=== PATIENT | male | born 1940 | race Caucasian/White ===

== ENCOUNTER 2016-12-16 07:52 | Outpatient (CLI) | payer MEDICARE, OTHER ==
[~2016-12-16] VITALS: Ht 185.5 cm; Wt 127.3 kg
[2016-12-16] VITALS (36 sets, daily range): BP systolic 109–143; BP diastolic 64–98; PULSE 54–87; TEMP 97.7; O2SAT 93–99
[~2016-12-16 07:52] MED LIST: ASPRIN; CELEXA 20MG20 MG/TAB PO; COLACE 100100 MG/CAP PO; COREG12.5 MG PO; COUMADIN 1MG1 MG/TAB PO; COZAAR 50MG50 MG/TAB PO; GLUCOPHAGE500 MG/TAB PO; HYZAAR 12.5 MG-1 TA1 PO; LASIX 20MG TABL20 MG PO; LASIX 40MG TABL40 MG PO; LASIX40 MG PO; LIPITOR20 MG PO; MACROBID 1100 MG/CAP PO; METFORMIN500 MG PO; MICRO-K 1010 MEQ PO; SOTALOL80 MG PO; VIT B 12; VITA #121000 MCG/M IM; VITAMIN B-12100 MCG PO; VITAMIN D31000 IU PO; Victoza SQ; WARFARIN4 MG PO; XANAX .25M0.25 MG/TA PO; ZOCOR 40MG40 MG PO; [UNRECOGNIZED DRUG - REMARK]
[2016-12-16 08:22] LABS: HEMATOCRIT 49.2 % (42.0-52.0); HEMOGLOBIN 16.3 g/dl (13.5-18.0); MEAN CELL VOLUME 93 fl (80.0-100.0); MEAN CORPUSCULAR HEMOGLOBIN 31 pg (27.0-31.0); MEAN CORPUSCULAR HGB CONC 33 g/dl (33.0-37.0); MEAN PLATELET VOLUME 11.5 fl (7.4-10.4); PLATELET COUNT 131 K/mm3 (130-400); REDCELL DISTRIBUTION WIDTH-CV 13.3 % (11.5-14.5); WHITE BLOOD COUNT 7.2 K/mm3 (4.8-10.8)
[2016-12-16 08:27] LABS: INR 2.8 (0.8-3.0); PROTHROMBIN TIME 32.4 SECONDS (9.7-12.8)
[2016-12-16 08:31] LABS: CALCIUM 9.1 mg/dL (8.4-10.2); CREATININE, serum 0.89 mg/dL (0.66-1.25); POTASSIUM 4.4 mmol/L (3.4-5.0)
[2016-12-16] MEDS ORDERED: ASPIRIN E.C. 8181 MG PO (08:40)
[2016-12-16] MEDS ORDERED: CYANOCOBAL1000 MCG/1 PO (08:42)
[2016-12-16] MEDS ORDERED: JANUVIA50 MG PO (08:44)
[2016-12-16] MEDS ORDERED: ZOCOR 40MG40 MG PO (08:46)
[2016-12-16] MEDS ORDERED: COUMADIN 1MG1 MG/TAB PO ×2 (08:47→08:48)
[2016-12-16] MEDS ORDERED: VITAMIN D1000 IU PO (08:49)
[2016-12-16] MEDS ORDERED: PACERONE400 MG PO (12:39)
== END 2016-12-16 13:30 | disposition home or self-care (01) ==
LOC: COL.RAD 07:52
PROVIDERS: Internal Medicine Interventional Cardiology
DX: I08.0 Rheumatic disorders of both mitral and aortic valves (principal); I50.22 Chronic systolic (congestive) heart failure; R94.31 Abnormal electrocardiogram [ECG] [EKG]
CPT/HCPCS: J0282; J2250; J3010; J7060

== ENCOUNTER 2017-02-03 07:25 | Day surgery (SDC) | payer MEDICARE, OTHER ==
[~2017-02-03] VITALS: Ht 185.4 cm; Wt 130.0 kg
[~2017-02-03 07:25] MED LIST changes: +ASPIRIN E.C. 8181 MG PO; +CYANOCOBAL1000 MCG/1 PO; +JANUVIA50 MG PO; +PACERONE400 MG PO; +VITAMIN D1000 IU PO
[2017-02-03 08:09] VITALS: BP 98/56; PULSE 63; TEMP 97.7
[2017-02-03] MEDS ORDERED: B COMPLEX #11 TA1 PO (08:41)
[2017-02-03] MEDS ORDERED: CPAP (08:42)
[2017-02-03] MEDS ORDERED: COREG 25MG25 MG/TAB PO (08:46)
[2017-02-03] MEDS ORDERED: COUMADIN4 MG PO (08:48)
[2017-02-03] MEDS ORDERED: ALDACTONE 25MG25 M1 PO (08:50)
[2017-02-03] MEDS ORDERED: TYLENOL 325MG325 MG PO (08:52)
[2017-02-03 08:54] LABS: HEMATOCRIT 45.3 % (42.0-52.0); MEAN CELL VOLUME 95 fl (80.0-100.0); MEAN CORPUSCULAR HEMOGLOBIN 31 pg (27.0-31.0); MEAN CORPUSCULAR HGB CONC 33 g/dl (33.0-37.0); MEAN PLATELET VOLUME 11.4 fl (7.4-10.4); PLATELET COUNT 120 K/mm3 (130-400); RED BLOOD COUNT 4.77 M/mm3 (4.20-5.60); REDCELL DISTRIBUTION WIDTH-CV 14.8 % (11.5-14.5); WHITE BLOOD COUNT 6.3 K/mm3 (4.8-10.8)
[2017-02-03 08:57] LABS: CALCIUM 8.8 mg/dL (8.4-10.2); CREATININE, serum 0.98 mg/dL (0.66-1.25); POTASSIUM 4.4 mmol/L (3.4-5.0)
[2017-02-03 08:59] LABS: PROTHROMBIN TIME 37.4 SECONDS (9.7-12.8)
[2017-02-03 09:08] LABS: INR 3.3 (0.8-3.0)
[2017-02-03 10:00] VITALS: BP 154/73; PULSE 58
[2017-02-03 10:15] VITALS: BP 151/82; PULSE 61
[2017-02-03] MEDS ORDERED: PACERONE200 MG PO (10:19)
[2017-02-03 10:30] VITALS: BP 149/83; PULSE 61
[2017-02-03 11:22] LABS: THYROID STIMULATING HORMONE 3.03 uIU/mL (0.465-4.680)
== END 2017-02-03 10:59 | disposition home or self-care (01) ==
LOC: COL.RAD 07:25
PROVIDERS: Internal Medicine Interventional Cardiology
DX: I48.91 Unspecified atrial fibrillation (principal); I10 Essential (primary) hypertension; I50.22 Chronic systolic (congestive) heart failure; R42 Dizziness and giddiness; Z95.0 Presence of cardiac pacemaker; F17.220 Nicotine dependence, chewing tobacco, uncomplicated
CPT/HCPCS: J2704; J7030

== ENCOUNTER 2017-04-21 10:31 | Day surgery (SDC) | payer MEDICARE, OTHER ==
[~2017-04-21] VITALS: Ht 183 cm; Wt 127.0 kg
[~2017-04-21 10:31] MED LIST changes: +ALDACTONE 25MG25 M1 PO; +B COMPLEX #11 TA1 PO; +COREG 25MG25 MG/TAB PO; +COUMADIN4 MG PO; +CPAP; +PACERONE200 MG PO; +TYLENOL 325MG325 MG PO
[2017-04-21 11:29] LABS: HEMATOCRIT 45.4 % (42.0-52.0); HEMOGLOBIN 15.1 g/dl (13.5-18.0); MEAN CELL VOLUME 97 fl (80.0-100.0); MEAN CORPUSCULAR HEMOGLOBIN 32 pg (27.0-31.0); MEAN CORPUSCULAR HGB CONC 33 g/dl (33.0-37.0); MEAN PLATELET VOLUME 11.1 fl (7.4-10.4); PLATELET COUNT 141 K/mm3 (130-400); RED BLOOD COUNT 4.68 M/mm3 (4.20-5.60); REDCELL DISTRIBUTION WIDTH-CV 13.5 % (11.5-14.5); WHITE BLOOD COUNT 7.9 K/mm3 (4.8-10.8)
[2017-04-21] MEDS ORDERED: COUMADIN4 MG PO (11:29)
[2017-04-21] MEDS ORDERED: COUMADIN 3MG3 MG/TAB PO (11:31)
[2017-04-21 11:33] LABS: PROTHROMBIN TIME 22.5 SECONDS (9.7-12.8)
[2017-04-21] MEDS ORDERED: VITAMIN B-1000 MCG/T PO (11:36)
[2017-04-21] MEDS ORDERED: ZOCOR 40MG40 MG PO (11:40)
[2017-04-21 11:42] LABS: CALCIUM 9.1 mg/dL (8.4-10.2); CREATININE, serum 0.98 mg/dL (0.66-1.25); POTASSIUM 4.7 mmol/L (3.4-5.0)
[2017-04-21] MEDS ORDERED: ALDACTONE 25MG25 M1 PO (11:46)
[2017-04-21] MEDS ORDERED: PACERONE100 MG PO (11:47)
[2017-04-21 11:51] VITALS: BP 130/67; PULSE 51; TEMP 98.3
[2017-04-21 15:24] LABS: PROTHROMBIN TIME 22.1 SECONDS (9.7-12.8)
[2017-04-21] MEDS ORDERED: CORDARONE200 MG/TAB PO (16:59)
== END 2017-04-21 17:10 | disposition home or self-care (01) ==
LOC: COL.CAR 10:31
PROVIDERS: Internal Medicine Interventional Cardiology
DX: I48.91 Unspecified atrial fibrillation (principal); I08.0 Rheumatic disorders of both mitral and aortic valves; I11.0 Hypertensive heart disease with heart failure; I50.20 Unspecified systolic (congestive) heart failure; E11.9 Type 2 diabetes mellitus without complications; R42 Dizziness and giddiness; Z79.84 Long term (current) use of oral hypoglycemic drugs; Z80.9 Family history of malignant neoplasm, unspecified; Z83.3 Family history of diabetes mellitus; Z95.810 Presence of automatic (implantable) cardiac defibrillator; Z79.01 Long term (current) use of anticoagulants; Z95.1 Presence of aortocoronary bypass graft
CPT/HCPCS: Q9967

== ENCOUNTER 2017-08-05 20:58 | Emergency (ER) | payer MEDICARE, OTHER ==
[~2017-08-05] VITALS: Ht 185.4 cm; Wt 127.3 kg
[~2017-08-05 20:58] MED LIST changes: +CORDARONE200 MG/TAB PO; +COUMADIN 3MG3 MG/TAB PO; +PACERONE100 MG PO; +VITAMIN B-1000 MCG/T PO
[2017-08-05 21:01] VITALS: TEMP 97.9
[2017-08-05] MEDS ORDERED: COREG 6.256.25 MG/TA PO (21:19)
[2017-08-05 21:49] LABS: BASO % 0.5 % (0.0-2.0); EOS # 0.4 (0.0-0.7); EOS % 5.2 % (0-4.0); HEMATOCRIT 45.3 % (42.0-52.0); HEMOGLOBIN 14.7 g/dl (13.5-18.0); LYMPH # 2.1 (1.2-3.4); LYMPH % 24.8 % (20.0-51.0); MEAN CELL VOLUME 97 fl (80.0-100.0); MEAN CORPUSCULAR HEMOGLOBIN 32 pg (27.0-31.0); MEAN CORPUSCULAR HGB CONC 33 g/dl (33.0-37.0); MEAN PLATELET VOLUME 10.9 fl (7.4-10.4); MONO # 0.8 (0.1-0.6); MONO % 9.1 % (1.7-9.3); PLATELET COUNT 197 K/mm3 (130-400); RED BLOOD COUNT 4.65 M/mm3 (4.20-5.60); REDCELL DISTRIBUTION WIDTH-CV 13.1 % (11.5-14.5); WHITE BLOOD COUNT 8.3 K/mm3 (4.8-10.8)
[2017-08-05 22:01] LABS: ADJUSTED CALCIUM 9.2 mg/dL (8.4-10.2); ALBUMIN 3.7 gm/dL (3.5-5.0); BILIRUBIN,TOTAL 0.7 mg/dL (0.0-1.0); CREATININE, serum 0.86 mg/dL (0.66-1.25); POTASSIUM 4.2 mmol/L (3.4-5.0)
[2017-08-05 22:02] LABS: INR 2.7 (0.8-3.0); PROTHROMBIN TIME 31.5 SECONDS (9.7-12.8)
[2017-08-05 22:28] LABS: PH 6 (5-8); SQUAMOUS EPITHELIAL None Seen /hpf; URINE BACTERIA Moderate /hpf; URINE BILIRUBIN Negative (NEGATIVE); URINE KETONE Negative (NEGATIVE); URINE RBC >50 /hpf; URINE UROBILINOGEN Negative (NEGATIVE); URINE WBC None Seen /hpf
[2017-08-05 22:29] LABS: URINE COLOR Red
[2017-08-05 22:30] LABS: URINE APPEARANCE Turbid; URINE GLUCOSE Negative (NEGATIVE)
[2017-08-05 22:31] LABS: URINE BLOOD 3+ (NEGATIVE)
[2017-08-05] MEDS ORDERED: CEFTIN500 MG PO (23:10)
[2017-08-05 23:51] VITALS: BP 138/78; PULSE 67
== END 2017-08-06 | disposition home or self-care (01) ==
LOC: COL.ER 20:58
PROVIDERS: Emergency Medicine
DX: R31.9 Hematuria, unspecified (principal); I48.91 Unspecified atrial fibrillation; I25.10 Atherosclerotic heart disease of native coronary artery without angina pectoris; I50.9 Heart failure, unspecified; Z87.442 Personal history of urinary calculi; Z79.82 Long term (current) use of aspirin
CPT/HCPCS: J0696

== ENCOUNTER 2017-10-11 06:13 | Day surgery (SDC) | payer MEDICARE, OTHER ==
[~2017-10-11] VITALS: Ht 286.4 cm; Wt 130.0 kg
[2017-10-11] VITALS (19 sets, daily range): BP systolic 102–135; BP diastolic 46–72; PULSE 59–80; TEMP 97–98.1
[~2017-10-11 06:13] MED LIST changes: +CEFTIN500 MG PO; +COREG 6.256.25 MG/TA PO; -COUMADIN 3MG3 MG/TAB PO
[2017-10-11 07:02] LABS: BASO % 0.4 % (0.0-2.0); EOS # 0.2 (0.0-0.7); EOS % 2.8 % (0-4.0); GRAN # 4.8 (1.4-6.5); GRAN % 57.9 % (42.2-75.2); HEMATOCRIT 47.7 % (42.0-52.0); HEMOGLOBIN 15.8 g/dl (13.5-18.0); LYMPH # 2.4 (1.2-3.4); LYMPH % 28.6 % (20.0-51.0); MEAN CELL VOLUME 95 fl (80.0-100.0); MEAN CORPUSCULAR HEMOGLOBIN 31 pg (27.0-31.0); MEAN CORPUSCULAR HGB CONC 33 g/dl (33.0-37.0); MEAN PLATELET VOLUME 11.2 fl (7.4-10.4); MONO # 0.8 (0.1-0.6); MONO % 9.9 % (1.7-9.3); PLATELET COUNT 152 K/mm3 (130-400); RED BLOOD COUNT 5.05 M/mm3 (4.20-5.60); WHITE BLOOD COUNT 8.3 K/mm3 (4.8-10.8)
[2017-10-11 07:10] LABS: CALCIUM 9.3 mg/dL (8.4-10.2); CREATININE, serum 0.77 mg/dL (0.66-1.25); POTASSIUM 4.5 mmol/L (3.4-5.0)
[2017-10-11 07:12] LABS: INR 1.2 (0.8-3.0); PROTHROMBIN TIME 13.8 SECONDS (9.7-12.8)
[2017-10-11] MEDS ORDERED: COUMADIN 3MG3 MG/TAB PO (07:15)
[2017-10-12 00:59] VITALS: BP 118/71; PULSE 58; TEMP 98.2
[2017-10-12 05:13] VITALS: BP 119/65; PULSE 60; TEMP 98.2
[2017-10-12 09:08] VITALS: BP 121/66; PULSE 79; TEMP 97.8
[2017-10-12 11:57] VITALS: BP 115/70; PULSE 88; TEMP 98.1
[2017-10-12 14:00] VITALS: BP 112/64; PULSE 76; TEMP 97.9
== END 2017-10-12 18:00 | disposition home or self-care (01) ==
LOC: SDCO 06:13 → SURG 11:36 → SDCO 10-12 18:00
PROVIDERS: Registered Nurse
DX: N40.1 Benign prostatic hyperplasia with lower urinary tract symptoms (principal); N13.8 Other obstructive and reflux uropathy; R31.9 Hematuria, unspecified; N42.0 Calculus of prostate; Z79.01 Long term (current) use of anticoagulants; Z88.0 Allergy status to penicillin; Z87.442 Personal history of urinary calculi; I48.91 Unspecified atrial fibrillation; I13.0 Hypertensive heart and chronic kidney disease with heart failure and stage 1 through stage 4 chronic kidney disease, or unspecified chronic kidney disease; E11.22 Type 2 diabetes mellitus with diabetic chronic kidney disease; E11.40 Type 2 diabetes mellitus with diabetic neuropathy, unspecified; N18.9 Chronic kidney disease, unspecified; I50.9 Heart failure, unspecified; Z79.84 Long term (current) use of oral hypoglycemic drugs; F17.220 Nicotine dependence, chewing tobacco, uncomplicated; I12.9 Hypertensive chronic kidney disease with stage 1 through stage 4 chronic kidney disease, or unspecified chronic kidney disease; E66.9 Obesity, unspecified; Z68.36 Body mass index [BMI] 36.0-36.9, adult; G47.33 Obstructive sleep apnea (adult) (pediatric); M19.90 Unspecified osteoarthritis, unspecified site; C44.90 Unspecified malignant neoplasm of skin, unspecified; Z95.0 Presence of cardiac pacemaker; N52.9 Male erectile dysfunction, unspecified; I49.9 Cardiac arrhythmia, unspecified; E78.00 Pure hypercholesterolemia, unspecified; N41.1 Chronic prostatitis; I25.10 Atherosclerotic heart disease of native coronary artery without angina pectoris; Z80.9 Family history of malignant neoplasm, unspecified; Z83.3 Family history of diabetes mellitus; Z82.49 Family history of ischemic heart disease and other diseases of the circulatory system
CPT/HCPCS: OP; J0690; J2405; J3010; J7030; J7120